=== PATIENT | female | born 1980 | race Caucasian/White ===

== ENCOUNTER 2019-04-23 08:51 | Outpatient (REF) | payer SELFPAY ==
[2019-04-23 21:21] LABS: Calculated LDL 77 mg/dL; Cholesterol 169 mg/dL (<200); HDL Cholesterol 81 mg/dL (40-60); TSH (W/Ref FT4) 0.68 uIU/mL (0.36-3.74); Triglyceride 57 mg/dL (<150)
== END 2019-04-23 09:11 ==
LOC: NCHCN 08:51
PROVIDERS: PCP Family Medicine; Visit Provider Family Medicine
DX: L65.9 Nonscarring hair loss, unspecified (principal)
CPT/HCPCS: 80061; 84443

== ENCOUNTER 2020-04-19 04:33 | Outpatient (CLI) | payer MEDICAID, SELFPAY ==
[2020-04-19 13:02] LABS: ALT 35 U/L (14-59); AST 24 U/L (15-37); Albumin 4.3 g/dL (3.4-5.0); Alkaline Phosphatase 35 U/L (46-116); Anion Gap 10.3 mmol/L (3-11); BUN 14 mg/dL (7-18); Bilirubin, Total 0.5 mg/dL (0.2-1.0); CO2 25.7 mmol/L (21.0-32.0); CREATININE 0.85 mg/dL (0.55-1.02); Calculated LDL 65 mg/dL (<100); Chloride 101 mmol/L (98-107); Cholesterol 160 mg/dL (<200); Glucose 84 mg/dL (74-106); HDL Cholesterol 80 mg/dL (40-60); Potassium 3.6 mmol/L (3.5-5.1); Sodium 137 mmol/L (136-145); Total Protein 7.5 g/dL (6.4-8.2); Triglyceride 77 mg/dL (<150)
== END 2020-04-19 04:53 ==
DX: Z00.00 Encounter for general adult medical examination without abnormal findings (principal); Z13.220 Encounter for screening for lipoid disorders
CPT/HCPCS: 36415; 80053; 80061

== ENCOUNTER 2020-05-02 10:25 | Outpatient (REF) | payer MEDICAID, SELFPAY ==
--- NOTE | 2020-05-02 09:15 | PAPFT_PTH ---
PATIENT: Morena Conrad LOC: [facility] U#:[id number] AGE/SX: 39/F ROOM: RE05/02/[address]: Savana Higginbotham APRN : 1980 BED: DIS: 05/02/2020 SPEC #: [id number] RECD: 05/02/20 12:59 STATUS: LAMONTE GIBSON #: [id number] EMANI: 05/02/20 09:[address]: Savana Higginbotham [facility]PT[facility] Cytology RECD BY: Tiara Chavez Tissues: 1 - CX/ENDOCX FOR PAP SMEARS Procedures: PAP THIN PREP/[facility] Screening HPV DNA PROBE Comments: [id number]
== END 2020-05-02 10:45 ==
LOC: LBN 10:25
DX: Z12.4 Encounter for screening for malignant neoplasm of cervix (principal); Z11.51 Encounter for screening for human papillomavirus (HPV)
CPT/HCPCS: 88142; 87624

== ENCOUNTER 2021-04-27 01:55 | Outpatient (CLI) | payer MEDICAID, SELFPAY ==
[2021-04-27 10:00] LABS: ALT 28 U/L (14-59); AST 19 U/L (15-37); Albumin 4.1 g/dL (3.4-5.0); Alkaline Phosphatase 41 U/L (46-116); Anion Gap 8.4 mmol/L (3-11); BUN 13 mg/dL (7-18); Bilirubin, Total 0.4 mg/dL (0.2-1.0); CO2 26.6 mmol/L (21.0-32.0); CREATININE 0.8 mg/dL (0.55-1.02); Chloride 104 mmol/L (98-107); Glucose 92 mg/dL (74-106); Potassium 3.9 mmol/L (3.5-5.1); Sodium 139 mmol/L (136-145); Total Protein 7.4 g/dL (6.4-8.2)
== END 2021-04-27 01:56 | disposition home or self-care (01) ==
LOC: LBO 01:56
DX: Z00.00 Encounter for general adult medical examination without abnormal findings (principal)
CPT/HCPCS: 36415; 80053

== ENCOUNTER 2021-05-17 02:42 | Outpatient (CLI) | payer MEDICAID, SELFPAY ==
[2021-05-17 11:17] LABS: Magnesium 1.8 mg/dL (1.8-2.4); TSH (W/Ref FT4) 0.41 uIU/mL (0.36-3.74); Vitamin B12 568 pg/mL (193-986)
== END 2021-05-17 02:43 | disposition home or self-care (01) ==
LOC: LBO 02:43
DX: R20.0 Anesthesia of skin (principal); R20.2 Paresthesia of skin; R53.83 Other fatigue; R55 Syncope and collapse
CPT/HCPCS: 36415; 82607; 83735; 84443

== ENCOUNTER 2022-05-02 02:27 | Outpatient (CLI) | payer MEDICAID, SELFPAY ==
[2022-05-02 13:16] LABS: ALT 24 U/L (14-59); AST 24 U/L (15-37); Albumin 3.9 g/dL (3.4-5.0); Alkaline Phosphatase 69 U/L (46-116); Anion Gap 8.6 mmol/L (3-11); BUN 16 mg/dL (7-18); Bilirubin, Total 0.2 mg/dL (0.2-1.0); CO2 26.4 mmol/L (21.0-32.0); CREATININE 0.8 mg/dL (0.55-1.02); Calcium 9.2 mg/dL (8.5-10.1); Chloride 103 mmol/L (98-107); Estimated GFR 96.06 (mL/min/1.73m2); Glucose 92 mg/dL (74-106); Potassium 3.9 mmol/L (3.5-5.1); Sodium 138 mmol/L (136-145); TSH (W/Ref FT4) 0.36 uIU/mL (0.36-3.74); Total Protein 7.4 g/dL (6.4-8.2)
== END 2022-05-02 02:28 | disposition home or self-care (01) ==
LOC: LBO 02:27
PROVIDERS: PCP Nurse Practitioner Family; Visit Provider Nurse Practitioner Family
DX: E04.1 Nontoxic single thyroid nodule (principal); F41.8 Other specified anxiety disorders
CPT/HCPCS: 36415; 80053; 84443

== ENCOUNTER → 2023-05-21 00:49 | Outpatient (CLI) | payer MEDICAID, SELFPAY ==
--- NOTE | 2023-05-21 07:00 | DI.MAMMO_ITS ---
Exam(s) MAMMO SCREENING EXAM: MAMMO SCREENING CLINICAL HISTORY: screening,Z12.39 TECHNIQUE: Mammograms were interpreted according to the usual protocol including computer analysis w [employer] CAD system, tomosynthesis and C-view imaging. COMPARISON: None. Baseline examination. FINDINGS: The breasts are composed of heterogeneously dense fibroglandular densities, Breast Density category C . No suspicious masses or suspicious microcalcifications are seen. No skin thickening or abnormal axillary lymph nodes are seen. IMPRESSION: BI-RADS Category 1, Negative mammogram. Yearly screening mammography is recommended. Breast Density Category C, heterogeneously Dense. The mammogram demonstrates the patient's breast tissue is dense. Dense breast tissue is very common a nd is not abnormal but dense breast tissue can make it harder to find cancer on a mammogram. Also, de nse breast tissue may increase breast cancer risk. This information about the result of the mammogram report was provided to the patient to raise their awareness. Use this report when you speak with the patient about their risks for breast cancer, which includes their family history. At that time, you may recommend additional screening tests (Ultrasound or MRI) as they might be useful based on their r isk. A negative radiographic report should not delay biopsy if a dominant or clinically suspicious mass is present. Up to ten percent of cancers are not identified on mammography. A negative report may reinforce clinical impression. Adenosis and dense breasts may obscure an underlying neoplasm. False positive reports average 6 to 10%.
== END ==
PROVIDERS: PCP Nurse Practitioner Family; Visit Provider Nurse Practitioner Family
DX: Z12.31 Encounter for screening mammogram for malignant neoplasm of breast (principal)
CPT/HCPCS: 77063; 77067

== ENCOUNTER 2023-05-29 01:31 | Outpatient (CLI) | payer MEDICAID, SELFPAY ==
[2023-05-29 09:44] LABS: ALT 35 U/L (14-59); AST 26 U/L (15-37); Albumin 3.9 g/dL (3.4-5.0); Alkaline Phosphatase 49 U/L (46-116); Anion Gap 6.7 mmol/L (3-11); BUN 14 mg/dL (7-18); Bilirubin, Total 0.4 mg/dL (0.2-1.0); CO2 29.3 mmol/L (21.0-32.0); CREATININE 0.9 mg/dL (0.55-1.02); Calcium 9.5 mg/dL (8.5-10.1); Calculated LDL 104 mg/dL (<100); Chloride 103 mmol/L (98-107); Cholesterol 216 mg/dL (<200); Estimated GFR 82.37 (mL/min/1.73m2); Glucose 95 mg/dL (74-106); HDL Cholesterol 99 mg/dL (40-60); Potassium 3.9 mmol/L (3.5-5.1); Sodium 139 mmol/L (136-145); TSH (W/Ref FT4) 0.38 uIU/mL (0.36-3.74); Total Protein 7.6 g/dL (6.4-8.2); Triglyceride 67 mg/dL (<150)
[2023-05-29 19:33] LABS: Hepatitis C Ab w Rflx HCV PCR Negative (Negative)
[2023-05-29 19:41] LABS: HIV-1/2 Ag & Ab Screen Negative (Negative)
== END 2023-05-29 01:32 | disposition home or self-care (01) ==
PROVIDERS: PCP Nurse Practitioner Family; Visit Provider Nurse Practitioner Family
DX: Z11.4 Encounter for screening for human immunodeficiency virus [HIV] (principal); Z13.220 Encounter for screening for lipoid disorders; E04.9 Nontoxic goiter, unspecified; Z11.59 Encounter for screening for other viral diseases
CPT/HCPCS: 36415; 80053; 80061; 86803; 87389; 84443

== ENCOUNTER 2024-02-27 21:56 | Outpatient (REF) | payer MEDICAID, SELFPAY | END 2024-02-27 21:57 | disposition home or self-care (01) | LOC: LBN 21:56 | PROVIDERS: PCP Nurse Practitioner Family; Visit Provider Nurse Practitioner Family | DX: J02.9 Acute pharyngitis, unspecified (principal); J18.9 Pneumonia, unspecified organism | CPT/HCPCS: 87070 ==

== ENCOUNTER 2024-05-21 16:21 | Outpatient (REF) | payer MEDICAID, SELFPAY ==
[2024-05-21 17:01] LABS: HCT 38.8 % (36.0-46.0); MCH 30.5 pg (27.0-33.0); MCHC 33.5 % (32.0-36.0); MCV 91 fL (80-95); MPV 10.6 fL (8.0-11.0); Platelet Count 247 10^3/uL (130-400); RBC 4.26 10^6/uL (3.93-5.22); RDW 13.5 % (11.7-14.6); RDW-SD 45.2 fL; WBC 7.38 10^3/uL (4.4-10.8)
[2024-05-21 17:36] LABS: TSH (W/Ref FT4) 0.46 uIU/mL (0.36-3.74); Vitamin D 25 Total 46.2 ng/mL (30-100)
== END 2024-05-21 16:22 | disposition home or self-care (01) ==
LOC: NCHCN 16:21
PROVIDERS: PCP Nurse Practitioner Family; Visit Provider Nurse Practitioner Family
DX: R53.83 Other fatigue (principal); Z51.81 Encounter for therapeutic drug level monitoring
CPT/HCPCS: 82306; 85027; 84443

== ENCOUNTER 2024-06-07 02:22 | Outpatient (CLI) | payer MEDICAID, SELFPAY ==
[2024-06-07] MEDS: Methacholine 100 MG VIAL IH (11:35)
[2024-06-07] MEDS: Albuterol HFA 18 GM 200 PUFF INH IH (11:36)
[2024-06-07] MEDS: Inhaler, Assist Device 1 EACH MC (11:36)
--- NOTE | 2024-06-07 14:51 | W.PFT ---
Date of service: 06/07/24 Time of Service: 09:55 Pulmonary Function Test Result Indications: Cough Interpretation Spirometry: No airflow limitation. There was a 10% decrease in FEV1 with administration of 16 mg/mL methacholine. Impression Normal baseline spirometry and a negative methacholine challenge. Clinical Correlation therefore is recommended.
== END 2024-06-07 02:23 | disposition home or self-care (01) ==
LOC: RT 02:22
PROVIDERS: PCP Nurse Practitioner Family; Visit Provider Student in an Organized Health Care Education/Training Program
DX: R05.9 Cough, unspecified (principal); J30.2 Other seasonal allergic rhinitis
CPT/HCPCS: 94060; 94070; J7674

== ENCOUNTER 2024-06-21 01:06 | Outpatient (CLI) | payer MEDICAID, SELFPAY ==
--- NOTE | 2024-06-21 06:30 | DI.MAMMO_ITS ---
Exam(s) MAMMO SCREENING EXAM: MAMMO SCREENING CLINICAL HISTORY: screening,z12.39 TECHNIQUE: Mammograms were interpreted according to the usual protocol including computer analysis w [employer] CAD system, tomosynthesis and C-view imaging. COMPARISON: 2023 FINDINGS: The breasts are composed of heterogeneously dense fibroglandular densities, Breast Density category C . No suspicious masses or suspicious microcalcifications are seen. No skin thickening or abnormal axillary lymph nodes are seen. There has been no significant change from prior exams. IMPRESSION: BI-RADS Category 1, Negative mammogram. Yearly screening mammography is recommended. Breast Density Category C, heterogeneously Dense. The mammogram demonstrates the patient's breast tissue is dense. Dense breast tissue is very common a nd is not abnormal but dense breast tissue can make it harder to find cancer on a mammogram. Also, de nse breast tissue may increase breast cancer risk. This information about the result of the mammogram report was provided to the patient to raise their awareness. Use this report when you speak with the patient about their risks for breast cancer, which includes their family history. At that time, you may recommend additional screening tests (Ultrasound or MRI) as they might be useful based on their r isk. A negative radiographic report should not delay biopsy if a dominant or clinically suspicious mass is present. Up to ten percent of cancers are not identified on mammography. A negative report may reinforce clinical impression. Adenosis and dense breasts may obscure an underlying neoplasm. False positive reports average 6 to 10%.
== END 2024-06-21 01:26 ==
LOC: DI 01:06
PROVIDERS: PCP Nurse Practitioner Family; Visit Provider Nurse Practitioner Family
DX: Z12.31 Encounter for screening mammogram for malignant neoplasm of breast (principal); R92.333 Mammographic heterogeneous density, bilateral breasts
CPT/HCPCS: 77063; 77067